=== PATIENT | female | born 1980 | race Two or more races ===

== ENCOUNTER 2017-10-15 09:09 | Emergency (ER) | payer MEDICAID, OTHER ==
[~2017-10-15] VITALS: Ht 165.1 cm; Wt 117.5 kg
[~2017-10-15 09:09] MED LIST: ALPR0.25 PO; [UNRECOGNIZED DRUG - OTHER]
[2017-10-15 09:55] LABS: Basophils # (auto) 0 uL; Basophils % (auto) 0.6 % (0.0-2.0); Eosinophils # (auto) 0.1 uL; Eosinophils % (auto) 1.3 % (0.0-7.0); Hematocrit 45.3 % (36.0-46.0); Hemoglobin 15.3 g/dL (12.2-16.2); Lymphocytes # (auto) 2.1 uL; Lymphocytes % (auto) 36.6 % (10.0-50.0); Mean Corpuscular Hemoglobin 31.7 pg (28.0-32.0); Mean Corpuscular Hgb Conc. 33.9 g/dL (32.0-36.0); Mean Corpuscular Volume 93.7 fL (80.0-100.0); Monocytes # (auto) 0.4 uL; Monocytes % (auto) 6.9 % (0.0-12.0); Neutrophils # (auto) 3.1 uL; Neutrophils % (auto) 54.6 % (37.0-80.0); Nucleated Red Blood Cells % 0.1 %; Platelet Count (auto) 213 10^3/uL (140-450); Red Cell Distribution Width 13.3 % (11.8-14.3); White Blood Cell 5.7 10^3/uL (4.4-10.8)
[2017-10-15 09:59] VITALS: BP 142/99
[2017-10-15 10:09] LABS: Albumin 3.9 g/dL (3.4-5.0); Anion Gap 5 (5-15); Aspartate Aminotransferase 19 U/L (15-37); Blood Urea Nitrogen 15 mg/dL (7-18); Calcium 9.3 mg/dL (8.5-10.1); Carbon Dioxide 27 mmol/L (21-32); Chloride 105 mmol/L (98-107); GFR African American 113 mL/min; GFR Non-African American 93 mL/min; Glucose 92 mg/dL (74-106); Magnesium 2.1 mg/dL (1.6-2.6); Sodium 137 mmol/L (136-145)
[2017-10-15 10:14] LABS: Alkaline Phosphatase 87 U/L (45-117); Bilirubin, Total 0.4 mg/dL (0.2-1.0); Total Protein 8.3 g/dL (6.4-8.2)
[2017-10-15 10:25] LABS: Urine Bilirubin Negative (Negative); Urine Blood Negative /uL (Negative); Urine Color Yellow (Yellow); Urine Glucose Normal (Normal); Urine Ketone Negative (Negative); Urine Mucus FEW (None Seen); Urine Nitrite Negative (Negative); Urine RBC <1 /hpf (0 - 4); Urine Squamous Epithelial Cell FEW /hpf (<5); Urine Urobilinogen Normal (Negative)
== END 2017-10-15 10:46 | disposition home or self-care (01) ==
LOC: ER 09:09
DX: R53.1 Weakness (principal); F41.1 Generalized anxiety disorder; G43.909 Migraine, unspecified, not intractable, without status migrainosus; Z79.899 Other long term (current) drug therapy
CPT/HCPCS: 36415; 80053; 80307; 81001; 81025; 83735; 84443; 84484; 85025; 93005

== ENCOUNTER 2018-12-12 07:40 | Emergency (ER) | payer MEDICAID ==
[~2018-12-12] VITALS: Ht 165.1 cm; Wt 92.1 kg
[2018-12-12 07:52] VITALS: BP 140/80
[2018-12-12] MEDS ORDERED: FLUORESCEIN SOD 1 MG TEST STRIP LEFTEYE ONE (08:30)
[2018-12-12] MEDS ORDERED: TETRACAINE HCL 0.5% OPTH(EYE) SOLN 4ML LEFTEYE ONE (08:30)
== END 2018-12-12 09:08 | disposition home or self-care (01) ==
LOC: ER 07:40
DX: S05.02XA Injury of conjunctiva and corneal abrasion without foreign body, left eye, initial encounter (principal); J32.9 Chronic sinusitis, unspecified; X58.XXXA Exposure to other specified factors, initial encounter; Y93.89 Activity, other specified; Y92.89 Other specified places as the place of occurrence of the external cause; Y99.8 Other external cause status
CPT/HCPCS: 70486

== ENCOUNTER 2021-05-16 18:22 | Emergency (ER) | payer MEDICAID ==
[~2021-05-16] VITALS: Ht 165.1 cm; Wt 117.9 kg
[2021-05-16 19:05] LABS: Basophils # (auto) 0 10 ^3/uL (0-0.2); Basophils % (auto) 0.3 % (0.0-2.0); Eosinophils # (auto) 0 10 ^3/uL (0-0.8); Eosinophils % (auto) 0.3 % (0.0-7.0); Hematocrit 40.4 % (36.0-46.0); Hemoglobin 14.1 g/dL (12.2-16.2); Lymphocytes # (auto) 2.1 10 ^3/uL (0.4-5.4); Lymphocytes % (auto) 14.2 % (10.0-50.0); Mean Corpuscular Hemoglobin 32.3 pg (28.0-32.0); Mean Corpuscular Hgb Conc. 34.8 g/dL (32.0-36.0); Mean Corpuscular Volume 92.7 fL (80.0-100.0); Monocytes # (auto) 0.9 10 ^3/uL (0-1.3); Monocytes % (auto) 6.3 % (0.0-12.0); Neutrophils # (auto) 11.9 10 ^3/uL (1.6-8.6); Neutrophils % (auto) 78.9 % (37.0-80.0); Platelet Count (auto) 226 10^3/uL (140-450); Red Blood Cells 4.36 10^6/uL (4.0-5.20); Red Cell Distribution Width 13.3 % (11.8-14.3); White Blood Cell 15.1 10^3/uL (4.4-10.8)
[2021-05-16 19:22] LABS: Calcium 8.3 mg/dL (8.5-10.1); Potassium 3.4 mmol/L (3.5-5.1)
[2021-05-16 19:28] LABS: Albumin 4.1 g/dL (3.4-5.0); BUN/Creatinine Ratio 16.7; Bilirubin, Total 0.6 mg/dL (0.2-1.0); Magnesium 2.4 mg/dL (1.6-2.6)
[2021-05-16 20:40] LABS: Urine Bacteria FEW /hpf (None Seen); Urine Blood Negative /uL (Negative); Urine Mucus FEW (None Seen); Urine Specific Gravity 1.032 (1.001-1.035); Urine WBC 4 /hpf (0 - 5)
[2021-05-16 20:50] LABS: Amphetamine Screen, Urine NEGATIVE (NEGATIVE); Barbiturate Scree,Urine NEGATIVE (NEGATIVE); Benzodiazephine Screen, Urine NEGATIVE (NEGATIVE); Cannabinoid Screen, Urine NEGATIVE (NEGATIVE); Cocaine Screen, Urine NEGATIVE (NEGATIVE); Opiate Scree,Urine NEGATIVE (NEGATIVE); Phencyclidine Screen, Urine NEGATIVE (NEGATIVE)
[2021-05-16 20:55] LABS: Alcohol, Urine < 3.0 mg/dL (0-10)
[2021-05-16] MEDS ORDERED: SODIUM CHLORIDE 0.9% 500 ML IV ONE (21:45)
[2021-05-16] MEDS ORDERED: ONDANSETRON HCL 4 MG/2 ML VIAL IV ONE (21:45)
[2021-05-16] MEDS ORDERED: MORPHINE SULF INJ 2 MG/ML SYRINGE 1ML IV ONE (22:00)
[2021-05-16 23:05] VITALS: BP 136/82
[2021-05-17] MEDS ORDERED: CIPR-173 PO (00:27)
== END 2021-05-17 00:46 | disposition home or self-care (01) ==
LOC: ER 18:22
DX: N39.0 Urinary tract infection, site not specified (principal); R11.2 Nausea with vomiting, unspecified; K82.8 Other specified diseases of gallbladder; Z90.49 Acquired absence of other specified parts of digestive tract; Z90.89 Acquired absence of other organs; Z79.899 Other long term (current) drug therapy
CPT/HCPCS: 36415; 74176; 76705; 80053; 80307; 81001; 81025; 82150; 83690; 83735; 85025; 85049; 93005; 96361; 96374; 96375; 99285; J2270; J2405; J7040

== ENCOUNTER 2021-09-20 14:20 | Emergency (ER) | payer MEDICAID ==
[~2021-09-20] VITALS: Ht 165.1 cm; Wt 113.4 kg
[~2021-09-20 14:20] MED LIST changes: +CIPR-173 PO
[2021-09-20 14:42] VITALS: BP 111/50
[2021-09-20] MEDS ORDERED: TETRACAINE HCL 0.5% OPTH(EYE) SOLN 4ML EACHEYE ONE (15:00)
[2021-09-20] MEDS ORDERED: FLUORESCEIN SOD OPTH TEST STRIP OP ONE (15:00)
[2021-09-20] MEDS ORDERED: ACETAMINOPHEN 500 MG TAB PO ONE (16:15)
== END 2021-09-20 16:26 | disposition home or self-care (01) ==
LOC: ER 14:20
DX: S05.01XA Injury of conjunctiva and corneal abrasion without foreign body, right eye, initial encounter (principal); Z20.822 Contact with and (suspected) exposure to COVID-19; Z90.49 Acquired absence of other specified parts of digestive tract; Z90.89 Acquired absence of other organs; Z79.2 Long term (current) use of antibiotics; Z79.899 Other long term (current) drug therapy; X58.XXXA Exposure to other specified factors, initial encounter; Y93.89 Activity, other specified; Y92.89 Other specified places as the place of occurrence of the external cause; Y99.8 Other external cause status
CPT/HCPCS: 36415; 87426

== ENCOUNTER 2021-11-15 10:01 | Emergency (ER) | payer MEDICAID ==
[~2021-11-15] VITALS: Ht 160 cm; Wt 117.9 kg
[2021-11-15 12:05] VITALS: BP 151/89
[2021-11-15] MEDS ORDERED: AZIT500T66 PO (12:06)
[2021-11-15] MEDS ORDERED: PROM1SOL4 PO (12:06)
== END 2021-11-15 12:29 | disposition home or self-care (01) ==
LOC: ER 10:01
DX: U07.1 COVID-19 (principal); J20.8 Acute bronchitis due to other specified organisms
CPT/HCPCS: 36415; 71046; 87426

== ENCOUNTER 2023-07-07 21:12 | Emergency (ER) | payer MEDICAID ==
[~2023-07-07] VITALS: Ht 165.1 cm; Wt 121.0 kg
[~2023-07-07 21:12] MED LIST changes: +AZIT500T66 PO; +PROM1SOL4 PO
[2023-07-07 23:00] VITALS: BP 110/72; PULSE 71; RESP 16; TEMP 98.1; O2SAT 98
[2023-07-07] MEDS ORDERED: IBUPROFEN 800 MG TAB PO ONE (23:15)
[2023-07-07 23:28] LABS: Rapid Influenza A Negative (Negative); Rapid Influenza B Positive (Negative)
[2023-07-07 23:29] LABS: COVID19 ANTIGEN SOFIA FIA NEGATIVE (NEGATIVE)
== END 2023-07-07 23:44 | disposition home or self-care (01) ==
LOC: ER 21:12
DX: J10.1 Influenza due to other identified influenza virus with other respiratory manifestations (principal); R51.9 Headache, unspecified; Z20.822 Contact with and (suspected) exposure to COVID-19
CPT/HCPCS: 36415; 87426; 87804

== ENCOUNTER 2024-05-21 20:56 | Emergency (ER) | payer MEDICAID ==
[~2024-05-21] VITALS: Ht 165.1 cm; Wt 145.0 kg
[2024-05-21 21:06] VITALS: BP 133/75; PULSE 76; RESP 17; O2SAT 96
[2024-05-21] MEDS ORDERED: AUG875T PO (21:58)
[2024-05-21] MEDS ORDERED: IBUP-1455 PO (21:58)
[2024-05-21] MEDS: DexAMETHasone SOD PHOS 10MG/1ML VIAL INJ IM ONE (23:49)
== END 2024-05-21 23:50 | disposition home or self-care (01) ==
LOC: ER 20:56
DX: Z48.00 Encounter for change or removal of nonsurgical wound dressing (principal); S61.451D Open bite of right hand, subsequent encounter; F32.A Depression, unspecified; F41.9 Anxiety disorder, unspecified; Z90.49 Acquired absence of other specified parts of digestive tract; Z90.89 Acquired absence of other organs; W54.0XXD Bitten by dog, subsequent encounter